=== PATIENT | male | born 1950 | race Caucasian/White ===

== ENCOUNTER → 2016-09-04 | Outpatient (CLI) | payer MEDICARE ==
[~2016-09-04] MED LIST: ACTOS30 MG PO; ASPIRIN EC81 MG PO; CLOPIDOGREL75 MG PO; FERROUS SULFAT325 M2 PO; FISH OIL 1,0001 EAC5 PO; GLUCOPHAGE 500500 MG PO; GLUCOTROL 10 MG10 MG PO; HYDRALAZINE HCL50 MG PO; IMDUR ER TAB 3030 MG PO; LANTUS100 UNIT/1 SC; LASIX 40 MG TAB40 MG PO; LIPITOR TAB 2020 MG PO; LISINOPRIL30 MG PO; OMEPRAZOLE20 MG PO; PRINIVIL5 MG PO; VITAMIN D1000 UNI1 PO
== END ==
LOC: LAB 10:35
PROVIDERS: Internal Medicine Nephrology
DX: N17.9 Acute kidney failure, unspecified (principal)
CPT/HCPCS: 36415; 80048

== ENCOUNTER → 2016-11-07 | Outpatient (CLI) | payer MEDICARE | LOC: LAB 10:31 | PROVIDERS: Internal Medicine Nephrology | DX: N18.3 Chronic kidney disease, stage 3 (moderate) (principal); N17.9 Acute kidney failure, unspecified | CPT/HCPCS: 36415; 80048; 82043; 82570; 84156 ==

== ENCOUNTER → 2016-12-04 | Outpatient (CLI) | payer MEDICARE | LOC: LAB 13:04 | PROVIDERS: Internal Medicine Nephrology | DX: N18.3 Chronic kidney disease, stage 3 (moderate) (principal) | CPT/HCPCS: 36415; 80048 ==

== ENCOUNTER → 2016-12-25 | Outpatient (CLI) | payer MEDICARE, OTHER | LOC: RAD 13:48 | DX: M25.511 Pain in right shoulder (principal); M75.31 Calcific tendinitis of right shoulder; M19.011 Primary osteoarthritis, right shoulder | CPT/HCPCS: 73030 ==

== ENCOUNTER 2017-04-03 20:48 | Emergency (ER) | payer MEDICARE ==
[2017-04-03 21:32] LABS: HEMOGLOBIN 12.2 gm/dl (14.0-17.5); RED BLOOD COUNT 4.49 M/UL (4.20-5.50); WHITE BLOOD COUNT 6.1 K/UL (4.5-11.0)
[2017-04-08] MEDS ORDERED: LANTUS100 UNIT/1 SC (11:09)
[2017-04-08] MEDS ORDERED: GLUCOPHAGE 500500 MG PO (11:09)
[2017-04-08] MEDS ORDERED: ACTOS30 MG PO (11:09)
[2017-04-08] MEDS ORDERED: PRINIVIL5 MG PO (11:10)
[2017-04-08] MEDS ORDERED: GLUCOTROL 10 MG10 MG PO (11:10)
[2017-04-08] MEDS ORDERED: LISINOPRIL30 MG PO (11:11)
[2017-04-08] MEDS ORDERED: FERROUS SULFAT325 M2 PO (11:12)
[2017-04-08] MEDS ORDERED: CLOPIDOGREL75 MG PO (11:12)
[2017-04-08] MEDS ORDERED: IMDUR ER TAB 3030 MG PO (11:12)
[2017-04-08] MEDS ORDERED: FISH OIL 1,0001 EAC5 PO (11:13)
[2017-04-08] MEDS ORDERED: LIPITOR TAB 2020 MG PO (11:13)
[2017-04-08] MEDS ORDERED: ASPIRIN EC81 MG PO (11:15)
[2017-04-08] MEDS ORDERED: VITAMIN D1000 UNI1 PO (11:15)
[2017-04-08] MEDS ORDERED: OMEPRAZOLE20 MG PO (11:16)
[2017-04-08] MEDS ORDERED: LASIX 40 MG TAB40 MG PO (11:16)
[2017-04-08] MEDS ORDERED: HYDRALAZINE HCL50 MG PO (11:17)
== END 2017-04-04 00:01 | disposition home or self-care (01) ==
LOC: ER1 20:48
PROVIDERS: Emergency Medicine
DX: J44.0 Chronic obstructive pulmonary disease with (acute) lower respiratory infection (principal); J18.9 Pneumonia, unspecified organism; J20.9 Acute bronchitis, unspecified; I11.9 Hypertensive heart disease without heart failure; E11.9 Type 2 diabetes mellitus without complications; E78.5 Hyperlipidemia, unspecified; Z95.1 Presence of aortocoronary bypass graft
CPT/HCPCS: 36415; 36600; 71020; 80053; 82550; 82553; 82803; 83874; 83880; 84484; 85025; 93005; 94664; 96374; 96375; 99285; J0696; J2930; J7050